=== PATIENT | male | born 1975 | race Caucasian/White ===

== ENCOUNTER 2018-05-28 16:49 | Outpatient (CLI) | payer OTHER ==
[~2018-05-28 16:49] MED LIST: GILTUSS LIQUID237 M1
== END 2018-05-28 17:13 | disposition home or self-care (01) ==
LOC: RAD 16:49
DX: M54.2 Cervicalgia (principal)

== ENCOUNTER 2018-08-28 16:39 | Outpatient (CLI) | payer OTHER | END 2018-08-28 16:48 | disposition home or self-care (01) | LOC: LAB 16:39 | DX: R05 Cough (principal); R50.9 Fever, unspecified ==

== ENCOUNTER 2020-01-24 08:54 | Outpatient (CLI) | payer OTHER | END 2020-01-24 09:00 | disposition home or self-care (01) | LOC: LAB 08:54 | DX: J11.1 Influenza due to unidentified influenza virus with other respiratory manifestations (principal); R05 Cough ==

== ENCOUNTER 2021-09-24 11:05 | Outpatient (CLI) | payer OTHER | END 2021-09-24 11:08 | disposition home or self-care (01) | LOC: LAB 11:05 | PROVIDERS: ATTEND Urology | DX: N40.1 Benign prostatic hyperplasia with lower urinary tract symptoms (principal) ==

== ENCOUNTER 2021-12-17 15:48 | Emergency (ER) | payer OTHER ==
[~2021-12-17] VITALS: Ht 170.2 cm; Wt 90.7 kg
[2021-12-17] MEDS ORDERED: DUI500 PO (16:13)
== END 2021-12-17 16:25 | disposition home or self-care (01) ==
LOC: ER 15:48
DX: L03.114 Cellulitis of left upper limb (principal); Z91.013 Allergy to seafood

== ENCOUNTER → 2023-10-21 07:59 | Outpatient (CLI) | payer OTHER ==
[~2023-10-21 07:59] MED LIST changes: +DUI500 PO
[2023-10-21 08:02] LABS: PH,URINE 6.5 (5.0-8.0); URINE APPEARANCE Clear; URINE BACTERIA 12.5 uL (0.0-1933); URINE BILIRRUBIN Negative (NEGATIVE); URINE BLOOD Small; URINE COLOR Yellow; URINE EPITHELIAL CELLS 0.7 uL (0.0-38.8); URINE GLUCOSE Negative (NEGATIVE); URINE LEUKOCYTE Negative; URINE NITRATE Negative; URINE PROTEIN Negative (NEGATIVE); URINE RBC 59.6 uL (0.0-20.8); URINE UROBILINOGEN 0.2 E.U./dl; URINE WBC 0.7 uL (0.0-23.2)
[2023-10-21 08:06] LABS: CREATININE SERUM 0.94 mg/dL (0.70-1.30); GFR 86.4
[2023-10-21 08:07] LABS: ALBUMIN 3.3 gm/dL (3.4-5.0); BILIRUBIN TOTAL 0.46 mg/dL (0.3-1.2); CALCIUM 9.1 mg/dL (8.5-10.1); GLOBULINA 3.7 G/DL (2.4-3.5); POTASSIUM 3.66 mEq/L (3.5-5.1); PROSTATIC SPECIFIC ANTIGEN 1.25 NG/ML (0.010-4.00)
[2023-10-21 08:10] LABS: HEMATOCRIT 45.5 % (39.0-48.0); HEMOGLOBIN 15.6 g/dL (13-16.00); MEAN CELL VOLUME 85.5 fL (80.0-100.00); MEAN CORPUSCULAR HEMOGLOBIN 29.3 pg (27.00-32.0); MEAN CORPUSCULAR HGB CONC 34.3 g/dl (32.0-36.0); PLATELET COUNT 218 K/uL (150-450); RED BLOOD COUNT 5.32 M/uL (4.00-6.00)
== END | disposition home or self-care (01) ==
LOC: LAB 07:59
PROVIDERS: ATTEND Urology
DX: N40.1 Benign prostatic hyperplasia with lower urinary tract symptoms (principal)

== ENCOUNTER 2025-05-12 09:16 | Outpatient (CLI) | payer OTHER ==
[2025-05-12 13:31] LABS: CALCIUM 9.4 mg/dL (8.5-10.1); CREATININE SERUM 0.92 mg/dL (0.70-1.30); GFR 87.81; POTASSIUM 4.13 mEq/L (3.5-5.1); TOTAL PROTEIN 7.6 gm/dL (6.4-8.2)
[2025-05-12 13:32] LABS: ALBUMIN 3.6 gm/dL (3.4-5.0); BILIRUBIN TOTAL 0.44 mg/dL (0.3-1.2); HEMATOCRIT 45.4 % (40.1-51.0); HEMOGLOBIN 15.6 g/dL (13.7-17.5); MEAN CORPUSCULAR HEMOGLOBIN 28.3 pg (25.6-32.2); PROSTATIC SPECIFIC ANTIGEN 1.36 NG/ML (0.010-4.00); RED BLOOD COUNT 5.52 M/uL (4.63-6.08)
[2025-05-12 13:33] LABS: BASO % 0.4 % (0.1-1.2); EOS % 6.2 % (0.7-7.0); LYMPH % 31.5 % (19.3-53.1); MONO % 8.8 % (4.7-12.5); NEUT % 52.7 % (34.0-71.1); PLATELET COUNT 252 K/uL (163-369); RED CELL DISTRIBUTION WIDTH 13.5 % (11.6-14.4)
[2025-05-12 13:34] LABS: EOS # 0.53 (0.04-0.54); LYMPH # 2.69 (1.18-3.74); MONO # 0.75 (0.24-0.82); NEUT # 4.51 (1.56-6.13)
[2025-05-12 13:35] LABS: URINE APPEARANCE CLEAR; URINE BILIRRUBIN NEGATIVE (NEGATIVE); URINE BLOOD SMALL; URINE COLOR YELLOW; URINE GLUCOSE NEGATIVE (NEGATIVE); URINE KETONE NEGATIVE (NEGATIVE); URINE LEUKOCYTE NEGATIVE; URINE NITRATE NEGATIVE; URINE PROTEIN NEGATIVE (NEGATIVE); URINE RBC 33.5 uL (0.0-20.8); URINE UROBILINOGEN 0.2 E.U./dl
[2025-05-12 13:36] LABS: URINE BACTERIA 14.6 uL (0.0-1933); URINE EPITHELIAL CELLS 1.1 uL (0.0-38.8); URINE WBC 1.5 uL (0.0-23.2)
== END 2025-05-12 09:18 | disposition home or self-care (01) ==
LOC: LAB 09:16
DX: N40.1 Benign prostatic hyperplasia with lower urinary tract symptoms (principal)